=== PATIENT | male | born 1950 | race Caucasian/White ===

== ENCOUNTER → 2017-08-08 20:00 | Outpatient (CLI) | payer MEDICARE, BC, SELFPAY | PROVIDERS: Family Provider Family Medicine; PCP Family Medicine; Visit Provider Internal Medicine Critical Care Medicine | DX: G47.33 Obstructive sleep apnea (adult) (pediatric) (principal) | CPT/HCPCS: 95811 ==

== ENCOUNTER → 2017-09-03 16:25 | Outpatient (CLI) | payer MEDICARE, BC, SELFPAY ==
--- NOTE | 2017-09-03 16:27 | US_ITS ---
STUDY: SCROTUM ULTRASOUND REASON FOR EXAM: Male, 67 years old. Right palpable lump TECHNIQUE: Ultrasound evaluation of the scrotum was performed with color Doppler and static saenz-scale imaging. COMPARISON: None. FINDINGS: RIGHT TESTICLE INTRATESTICULAR: There is a normal size of the right testicle. The right testicle measures 4.9 x 3.6 x 2.2 cm. There is a homogenous echotexture. There is normal arterial and normal venous vascularity. There is no demonstrated right testicular mass or cyst. There is a slightly hyper/isoechoic area with hypoechoic center of the posterior right scrotal wall measuring 4 mm in diameter. This structure is itself avascular, but there is demonstrated surrounding hypervascularity of the scrotal wall tissue. EXTRATESTICULAR: The epididymis is normal in size. The epididymis head measures 0.8 x 1.0 x 0.8 cm. There is normal vascularity of the epididymis. There is no demonstrated epididymal cystic structure. There is a small hydrocele. There is no demonstrated varicocele. There is no demonstrated extratesticular mass or cyst. LEFT TESTICLE INTRATESTICULAR: There is a normal size of the left testicle. The left testicle measures 4.3 x 3.2 x 1.6 cm. There is a homogenous echotexture. There is normal arterial and normal venous vascularity. There is no demonstrated left testicular mass or cyst. EXTRATESTICULAR: The epididymis is normal in size. The epididymis head measures 0.7 x 1.3 x 1.0 cm. There is normal vascularity of the epididymis. There is no demonstrated epididymal cystic structure. There is no demonstrated hydrocele. There is no demonstrated varicocele. There is no demonstrated extratesticular mass or cyst. US/Testicular with Arterial Flow IMPRESSION: 4 mm slightly hyper/isoechoic structure with hypoechoic center of the posterior right scrotal wall corresponding to palpable abnormality. This may represent process such as small sebaceous cyst or abscess. There is a small right hydrocele. The left and right testes and epididymal heads otherwise appear within normal limits. Electronically Signed: Kurtis Peoples MD at 18:22 EDT , Service support ,
== END ==
PROVIDERS: Family Provider Family Medicine; PCP Family Medicine; Visit Provider Family Medicine
DX: N50.82 Scrotal pain (principal); N50.89 Other specified disorders of the male genital organs
CPT/HCPCS: 76870; 93976

== ENCOUNTER → 2017-11-29 10:00 | Outpatient (CLI) | payer MEDICARE, BC, SELFPAY | PROVIDERS: Family Provider Family Medicine; PCP Family Medicine; Visit Provider Nurse Practitioner Family | DX: G47.33 Obstructive sleep apnea (adult) (pediatric) (principal) | CPT/HCPCS: 98960; G0463 ==

== ENCOUNTER → 2018-03-14 07:56 | Outpatient (CLI) | payer MEDICARE, BC, SELFPAY ==
[2018-03-14 10:25] LABS: Absolute Lymphocyte Count 1.37 X10^3/ul (0.83-4.51); Absolute Neutrophil Count 2.1 X10^3/uL (2.0-7.7); Basophil# 0.02 X10^3/uL; Basophil% 0.5 % (0-1); Eosinophil# 0.11 X10^3/uL; Eosinophils% 2.6 % (0-5); Hemoglobin 13.8 g/dl (13.0-16.5); Lymphocyte # 1.37 X10^3/ul (4.0); Lymphocyte % 32.2 % (19-41); Mean Corp Hgb Conc 33.7 g/gl (32-36); Mean Corpuscular Hgb 31.4 pg (27.0-32.0); Mean Corpuscular Volume 93.2 fL (80-94); Mean Platelet Vol. 9.3 fl (6.2-12.0); Monocyte# 0.62 X10^3/uL; Monocyte% 14.6 % (0-10); Neutrophil # 2.12 X10^3/uL (2.7-7.7); Neutrophil % 49.9 % (47-70); Platelet Count 244 K/mm3 (150-450); RBC Distribution Width CV 12.7 % (11.6-14.6); RBC Distribution Width SD 42.8 fl (35.1-43.9); White Blood Count 4.3 K/mm3 (4.4-11.0)
[2018-03-14 10:30] LABS: POSITIVE COUNT NO; POSITIVE DIFFERENTIAL NO; POSITIVE MORPHOLOGY NO
[2018-03-14 10:49] LABS: Anion Gap 7 (5-15); BUN 22 mg/dL (7-18); BUN/Creat Ratio 22.2 RATIO (10-20); Chloride 104 mmol/L (98-107); Cholesterol 170 mg/dL (200); Creatinine, Serum 0.99 mg/dL (0.70-1.30); EST Glomerular Filtration Rate 80 mL/min (>60); Est Glom Filt Rate - Afr Amer 97 mL/min (>60); Glucose 89 mg/dL (74-106); High Density Lipoprotein 41 mg/dL; PSA,Total - Annual Screen 3.46 ng/mL (0.00-4.00); Potassium 4.3 mmol/L (3.5-5.1); Sodium Level 140 mmol/L (136-145); Triglycerides 99 mg/dL; Very Low Density Lipoprotein 20 mg/dL (5-40)
== END ==
PROVIDERS: Family Provider Family Medicine; PCP Family Medicine; Referring Provider Family Medicine; Visit Provider Family Medicine
DX: I10 Essential (primary) hypertension (principal); E78.00 Pure hypercholesterolemia, unspecified; L02.415 Cutaneous abscess of right lower limb; Z12.5 Encounter for screening for malignant neoplasm of prostate
CPT/HCPCS: 36415; 80048; 80061; 84153; 85025; G0103

== ENCOUNTER → 2019-05-16 07:22 | Outpatient (CLI) | payer MEDICARE, BC, SELFPAY ==
[2019-05-14 12:25] VITALS: BMI 29.8
[2019-05-16 10:35] LABS: AST(SGOT) 26 U/L (15-37); Alanine Aminotransfer ALT/SGPT 35 U/L (16-61); Albumin, Serum 3.9 g/dL (3.2-5.0); Alkaline Phosphatase 92 U/L (45-117); Anion Gap 5 (5-15); BUN 25 mg/dL (7-18); Calcium,Total 8.6 mg/dL (8.5-10.1); Chloride 102 mmol/L (98-107); Cholesterol 167 mg/dL (200); Creatinine, Serum 1.19 mg/dL (0.70-1.30); EST Glomerular Filtration Rate 64 mL/min (>60); Est Glom Filt Rate - Afr Amer 78 mL/min (>60); Globulin 3.8 g/dL (2.2-4.2); Glucose 78 mg/dL (74-106); High Density Lipoprotein 58 mg/dL; PSA,Total - Annual Screen 4.37 ng/mL (0.00-4.00); Potassium 4.1 mmol/L (3.5-5.1); Protein, Total 7.7 g/dL (6.4-8.2); Sodium Level 135 mmol/L (136-145); Triglycerides 72 mg/dL; Very Low Density Lipoprotein 14 mg/dL (5-40)
== END ==
PROVIDERS: Family Provider Family Medicine; PCP Family Medicine; Referring Provider Family Medicine; Visit Provider Family Medicine
DX: Z12.5 Encounter for screening for malignant neoplasm of prostate (principal); I10 Essential (primary) hypertension
CPT/HCPCS: 80053; 80061; 84153; G0103

== ENCOUNTER → 2019-11-20 08:25 | Outpatient (CLI) | payer MEDICARE, BC, SELFPAY ==
[2019-08-06 13:13] VITALS: BMI 31.6
[2019-11-20 10:43] LABS: PSA,Total- Diagnostic 4.23 ng/mL (0.0-4.0)
== END ==
PROVIDERS: PCP Family Medicine; Referring Provider Family Medicine; Visit Provider Family Medicine
DX: R97.20 Elevated prostate specific antigen [PSA] (principal)
CPT/HCPCS: 36415; 84153

== ENCOUNTER → 2020-03-04 13:00 | Outpatient (CLI) | payer MEDICARE, BC, SELFPAY ==
[2020-02-04 11:32] VITALS: BMI 33.6
== END ==
PROVIDERS: PCP Family Medicine; Referring Provider Internal Medicine Critical Care Medicine; Visit Provider Internal Medicine Critical Care Medicine
DX: G47.30 Sleep apnea, unspecified (principal)
CPT/HCPCS: 98960; G0463

== ENCOUNTER → 2020-03-29 14:34 | Outpatient (CLI) | payer MEDICARE, BC, SELFPAY ==
[2020-02-04 11:32] VITALS: BMI 33.6
[2020-03-29 18:32] LABS: Anion Gap 8 (5-15); BUN 21 mg/dL (7-18); BUN/Creat Ratio 19.8 RATIO (10-20); Chloride 102 mmol/L (98-107); Creatinine, Serum 1.06 mg/dL (0.70-1.30); EST Glomerular Filtration Rate 73 mL/min (>60); Est Glom Filt Rate - Afr Amer 89 mL/min (>60); Glucose 82 mg/dL (74-106); Potassium 4.1 mmol/L (3.5-5.1); Sodium Level 138 mmol/L (136-145)
[2020-03-29 18:47] LABS: Microalbumin,Random Urine 7.5 mg/L (NO RANGE EST.); Microalbumin:Creatinine Ratio 17.2 mg/g CRE (<30 mg/g CRE)
== END ==
PROVIDERS: PCP Family Medicine; Visit Provider Family Medicine
DX: I10 Essential (primary) hypertension (principal)
CPT/HCPCS: 36415; 80048; 82043; 82570

== ENCOUNTER → 2020-10-26 08:51 | Outpatient (CLI) | payer MEDICARE, BC, SELFPAY ==
[2020-08-05 06:58] VITALS: BMI 35.1
[2020-10-26 10:50] LABS: ALB/GLOB Ratio 1.1 RATIO (0.9-2.4); AST(SGOT) 21 U/L (15-37); Alanine Aminotransfer ALT/SGPT 34 U/L (16-61); Albumin, Serum 3.9 g/dL (3.2-5.0); Alkaline Phosphatase 101 U/L (45-117); Anion Gap 6 (5-15); BUN 21 mg/dL (7-18); BUN/Creat Ratio 20.6 RATIO (10-20); Calcium,Total 8.9 mg/dL (8.5-10.1); Chloride 106 mmol/L (98-107); Cholesterol 189 mg/dL (200); Creatinine, Serum 1.02 mg/dL (0.70-1.30); EST Glomerular Filtration Rate 77 mL/min (>60); Est Glom Filt Rate - Afr Amer 93 mL/min (>60); Globulin 3.5 g/dL (2.2-4.2); Glucose 92 mg/dL (74-106); High Density Lipoprotein 48 mg/dL; Potassium 4.1 mmol/L (3.5-5.1); Protein, Total 7.4 g/dL (6.4-8.2); Sodium Level 137 mmol/L (136-145); Triglycerides 122 mg/dL; Very Low Density Lipoprotein 24 mg/dL (5-40)
== END ==
PROVIDERS: PCP Family Medicine; Referring Provider Family Medicine; Visit Provider Family Medicine
DX: E78.00 Pure hypercholesterolemia, unspecified (principal); R97.20 Elevated prostate specific antigen [PSA]
CPT/HCPCS: 36415; 80053; 80061; 84153

== ENCOUNTER → 2020-10-27 09:58 | Outpatient (CLI) | payer MEDICARE, BC, SELFPAY ==
[2020-08-05 06:58] VITALS: BMI 35.1
--- NOTE | 2020-10-27 10:01 | STEWCON_ITS ---
Reason For Study: DYSPNEA Stress Results Protocol: Tony Protocol WITH DEFINITY Maximum Predicted HR: 150 bpm Target HR: 128 bpm % Maximum Predicted HR: 89 % DurationHeart Rate Stage (mm:ss) (bpm) BP Comment BASELINE 68 148/80 STAGE 1 3:00 111 170/80SLIGHT SOB STAGE 2 3:00 120 172/80SOB BUT ABLE TO TALK STAGE 3 1:00 134 / INCREASED SOB WITH EXP AUDIBLE WHEEZ RECOVERY 80 148/824 CC DEFINITY TOTAL Stress Duration: 7:00 mm:ss Maximum Stress HR: 134 bpm METS: 9 Baseline Echocardiogram Findings Stress Echo Wall motion Data Resting WM Intermediate WM Stress WM Resting Wall Motion Wall Motion Stress All segments Normal. All segments Hyperkinetic. Ejection Fraction 55 %. Ejection Fraction 65 %. Stress Results Heart rate response: Appropriate Blood pressure response: Resting hypertension-appropriate response Arrhythmias: none Functional capacity: Good Stop secondary to: Dyspnea. EKG Data Baseline ECG: NSR. Peak exercise ECG: Somatic/motion artifact with no obvious ECG changes. Symptoms with Stress No complaint of chest discomfort during exercise or recovery. ECHO/Stress Test Echo W/Contrast Interpretation Summary Contrast injection performed Negative (adequate) stress echocardiogram Ordering Physician: Renny Dunaway Referring Physician: Renny Dunaway Performed By: Tory Rangel, AKBAR, RVT
== END ==
PROVIDERS: PCP Family Medicine; Referring Provider Family Medicine; Visit Provider Family Medicine
DX: R06.00 Dyspnea, unspecified (principal)
CPT/HCPCS: 93017; 93350; Q9957; A4216; C8928; J3490

== ENCOUNTER → 2021-12-09 | Outpatient (CLI) | payer MEDICARE, BC, SELFPAY ==
[2021-12-09 15:26] LABS: AST(SGOT) 27 U/L (15-37); Alanine Aminotransfer ALT/SGPT 37 U/L (16-61); Anion Gap 7 (5-15); BUN 17 mg/dL (7-18); BUN/Creat Ratio 17.7 RATIO (10-20); Calcium,Total 8.9 mg/dL (8.5-10.1); Chloride 104 mmol/L (98-107); Cholesterol 193 mg/dL (200); Creatinine, Serum 0.96 mg/dL (0.70-1.30); EST Glomerular Filtration Rate 82 mL/min (>60); Est Glom Filt Rate - Afr Amer 99 mL/min (>60); Glucose 86 mg/dL (74-106); High Density Lipoprotein 45 mg/dL; PSA,Total - Annual Screen 5.92 ng/mL (0.00-4.00); Potassium 4.4 mmol/L (3.5-5.1); Sodium Level 138 mmol/L (136-145); Triglycerides 197 mg/dL; Very Low Density Lipoprotein 39 mg/dL (5-40)
== END | disposition home or self-care (01) ==
LOC: MFPLAB 11:54
PROVIDERS: PCP Family Medicine; Visit Provider Family Medicine
DX: I10 Essential (primary) hypertension (principal); E78.00 Pure hypercholesterolemia, unspecified; R97.20 Elevated prostate specific antigen [PSA]; Z12.5 Encounter for screening for malignant neoplasm of prostate
CPT/HCPCS: 36415; 80048; 80061; 82043; 82570; 84153; 84450; 84460; G0103

== ENCOUNTER → 2022-02-09 | Outpatient (CLI) | payer MEDICARE, BC, SELFPAY ==
--- NOTE | 2022-02-09 07:18 | CT_ITS ---
STUDY: CT RIGHT LOWER EXTREMITY WITHOUT CONTRAST REASON FOR EXAM: Right knee osteoarthritis, surgical planning. TECHNIQUE: Transaxial CT imaging of the lower extremity was performed. Coronal and sagittal images were reformatted. Individualized dose optimization techniques were used for this CT. COMPARISON: Radiographs 08/06/2012. FINDINGS: Knee: There is arthrosis of the medial femorotibial compartment with marginal osteophytes, subchondral cystic change/eburnation and joint space loss (coronal reconstruction 51). There is incidental vacuum phenomenon in the medial femorotibial compartment. There are small marginal osteophytes of the lateral femoral condyle with preservation of joint space of the lateral femorotibial compartment. There are small marginal osteophytes of the patellofemoral compartment with preservation of joint space. There is a small joint effusion. There is a small popliteal cyst (axial image 310). There is mild vascular calcification. Hip: There is narrowing of the joint space (coronal reconstruction 56). Ankle: Unremarkable right ankle. CT/Extremity Lower without Contra IMPRESSION: Right knee osteoarthritis. Electronically Signed: Angelo Hravey MD at 15:01 EDT ,
--- NOTE | 2022-02-09 07:20 | EKG12_ITS ---
Test Reason : PREOP Blood Pressure : / mmHG Vent. Rate : 060 BPM Atrial Rate : 060 BPM P-R Int : 200 ms QRS Dur : 098 ms QT Int : 450 ms P-R-T Axes : 026 025 055 degrees QTc Int : 450 ms Normal sinus rhythm Normal ECG Confirmed by NELLY MIRANDA, SOILA ([id number]), health editor PATRICE ROB ([id number]) on 02/10/2022 11:53:40 AM Referred By: Donavon De Confirmed By:SHADY VILLEGAS MD
--- NOTE | 2022-02-09 07:21 | RAD_ITS ---
HISTORY: PREOP. TECHNIQUE: XR Chest 2 Views. COMPARISON: 02/18/2017. FINDINGS: CARDIOMEDIASTINAL BORDERS: Cardiac silhouette within normal limits in size. Mediastinal contour unremarkable. LUNGS: Hyperinflated lungs with mild linear bibasilar opacities. PLEURA: No pleural effusion or pneumothorax seen. OSSEOUS STRUCTURES: Mild scoliosis and degenerative change. RAD/Chest PA and Lateral IMPRESSION: Mild atelectasis or scarring in the lung bases. Electronically Signed: Brittanie Sanchez MD at 8:31 EDT ,
[2022-02-09 08:14] LABS: Absolute Lymphocyte Count 1.56 X10^3/uL (0.83-4.51); Absolute Neutrophil Count 2.1 X10^3/uL (2.0-7.7); Basophil# 0.04 X10^3/uL; Basophil% 0.9 % (0-1); Eosinophil# 0.33 X10^3/uL; Eosinophils% 7.1 % (0-5); Hematocrit 41.1 % (40-54); Hemoglobin 13.6 g/dL (13.0-16.5); Lymphocyte # 1.56 X10^3/ul (0.83-4.51); Lymphocyte % 33.5 % (19-41); Mean Corp Hgb Conc 33.1 g/dL (32-36); Mean Corpuscular Volume 90.5 fL (80-94); Mean Platelet Vol. 8.9 fl (6.2-12.0); Monocyte# 0.67 X10^3/uL; Monocyte% 14.4 % (0-10); NRBC Flagged by Analyzer 0 % (0-5); Neutrophil # 2.05 X10^3/uL (2.7-7.7); Neutrophil % 43.9 % (47-70); Platelet Count 256 K/mm3 (150-450); RBC Distribution Width CV 13.1 % (11.6-14.6); Red Blood Count 4.54 M/mm3 (4.6-6.2); White Blood Count 4.7 K/mm3 (4.4-11.0)
[2022-02-09 08:39] LABS: Anion Gap 8 (5-15); BUN 19 mg/dL (7-18); BUN/Creat Ratio 18.8 RATIO (10-20); Calcium,Total 8.7 mg/dL (8.5-10.1); Chloride 104 mmol/L (98-107); Creatinine, Serum 1.01 mg/dL (0.70-1.30); EST Glomerular Filtration Rate 77 mL/min (>60); Est Glom Filt Rate - Afr Amer 93 mL/min (>60); Glucose 95 mg/dL (74-106); Potassium 3.8 mmol/L (3.5-5.1); Sodium Level 139 mmol/L (136-145)
== END | disposition home or self-care (01) ==
LOC: CT 07:08
PROVIDERS: Physician Assistant Surgical; PCP Family Medicine; Referring Provider Orthopaedic Surgery; Visit Provider Orthopaedic Surgery
DX: Z01.818 Encounter for other preprocedural examination (principal)
CPT/HCPCS: 36415; 71046; 73700; 80048; 85025; 93005

== ENCOUNTER → 2022-03-01 | Outpatient (CLI) | payer MEDICARE, BC, SELFPAY ==
--- NOTE | 2022-03-01 11:00 | KNEE_PTH ---
PATIENT: DOLLY NAVARRO LOC: [facility] U#:[id number] AGE/SX: 72/M ROOM: RE03/01/[address]: Dr. Donavon De DO : 1950 BED: DIS: 03/01/2022 SPEC #: [id number] RECD: 03/01/22 15:06 STATUS: INES TUAN #: [id number] CATRINA: 03/01/22 11:[address]: Donavon De DEPT: SURGICAL PATHOLOGY RECD BY: Mayra Ascencio ENTERED: 03/02/22 08:18 SP TYPE: TOTAL KNEE OTHR DR: Dr. Justin Stubbs MD [facility] Tissues: Knee, NOS Procedures: Decalcification bone/plaque Surgery Specimen Level IV HEADER OPERATION: Robotic assisted right total knee arthroplasty PRE-OP DIAGNOSIS: Grade IV osteoarthritis right knee TISSUE SUBMITTED: Right knee bone and tissue MICROSCOPIC DIAGNOSIS Bone and tissue of right knee, total knee resection: Severe degenerative joint disease. Mild synovial hyperplasia. AM:arie 03/08/2022 MICROSCOPIC DESCRIPTION Slides are reviewed. GROSS DESCRIPTION Received is one container designated bone and soft tissue left knee. The specimen consists of multiple fragments of payne-yellow bone measuring in aggregate 16 x 15 x 2 cm. Also in the specimen container are multiple fragments of yellow-white soft tissue measuring in aggregate 11 x 10 x 2 cm. A number of bony fragments contain articular surfaces consistent with tibial plateau and femoral condyle and displaying prominent osteophyte formation, eburnation, and bone erosion. Waistline Joiner Lockstitch sections are submitted in two cassettes as follows: 1 - soft tissue, 2 - bone after decalcification. / AM:arie 03/02/2022 TC:5 CPT: 38361, 93257
== END | disposition home or self-care (01) ==
LOC: LABSPEC 15:15
PROVIDERS: PCP Family Medicine; Visit Provider Orthopaedic Surgery
DX: M17.11 Unilateral primary osteoarthritis, right knee (principal)
CPT/HCPCS: 88305; 88311

== ENCOUNTER → 2022-07-14 | Outpatient (CLI) | payer MEDICARE, BC, SELFPAY ==
[2022-07-14 10:15] LABS: Absolute Neutrophil Count 1.9 X10^3/uL (2.0-7.7); Basophil# 0.04 X10^3/uL; Basophil% 0.9 % (0-1); Eosinophils% 6.9 % (0-5); Hematocrit 40.2 % (40-54); Hemoglobin 13.5 g/dL (13.0-16.5); Lymphocyte % 34.7 % (19-41); Mean Corp Hgb Conc 33.6 g/dL (32-36); Mean Corpuscular Hgb 30.6 pg (27.0-32.0); Mean Corpuscular Volume 91.2 fL (80-94); Mean Platelet Vol. 8.5 fl (6.2-12.0); Monocyte# 0.61 X10^3/uL; Monocyte% 14.1 % (0-10); NRBC Flagged by Analyzer 0 % (0-5); Neutrophil # 1.86 X10^3/uL (2.7-7.7); Neutrophil % 43.2 % (47-70); Platelet Count 234 K/mm3 (150-450); RBC Distribution Width CV 13.1 % (11.6-14.6); RBC Distribution Width SD 43.7 fl (35.1-43.9); Red Blood Count 4.41 M/mm3 (4.6-6.2); White Blood Count 4.3 K/mm3 (4.4-11.0)
[2022-07-14 10:36] LABS: Microalbumin,Random Urine 26.1 mg/L (NO RANGE EST.); Microalbumin:Creatinine Ratio 15.1 mg/g CRE (<30 mg/g CRE)
[2022-07-14 10:57] LABS: AST(SGOT) 18 U/L (15-37); Alanine Aminotransfer ALT/SGPT 30 U/L (16-61); Albumin, Serum 3.6 g/dL (3.2-5.0); Alkaline Phosphatase 93 U/L (45-117); Anion Gap 4 (5-15); BUN 22 mg/dL (7-18); BUN/Creat Ratio 20.4 RATIO (10-20); Calcium,Total 8.7 mg/dL (8.5-10.1); Chloride 106 mmol/L (98-107); Creatinine, Serum 1.08 mg/dL (0.70-1.30); EST Glomerular Filtration Rate 71 mL/min (>60); Est Glom Filt Rate - Afr Amer 86 mL/min (>60); Globulin 3.5 g/dL (2.2-4.2); Glucose 97 mg/dL (74-106); PSA,Total- Diagnostic 5.27 ng/mL (0.0-4.0); Potassium 4.1 mmol/L (3.5-5.1); Protein, Total 7.1 g/dL (6.4-8.2); Sodium Level 139 mmol/L (136-145)
== END | disposition home or self-care (01) ==
PROVIDERS: PCP Family Medicine; Referring Provider Family Medicine; Visit Provider Family Medicine
DX: R97.20 Elevated prostate specific antigen [PSA] (principal); J44.9 Chronic obstructive pulmonary disease, unspecified; I10 Essential (primary) hypertension
CPT/HCPCS: 36415; 80053; 82043; 82570; 84153; 85025

== ENCOUNTER → 2022-09-14 | Outpatient (CLI) | payer MEDICARE, BC, SELFPAY ==
[2022-09-14 10:26] LABS: Erythrocyte Sedimentation Rate 5 mm/hr (0-20)
[2022-09-14 10:28] LABS: Absolute Lymphocyte Count 1.31 X10^3/uL (0.83-4.51); Absolute Neutrophil Count 1.9 X10^3/uL (2.0-7.7); Basophil# 0.03 X10^3/uL; Basophil% 0.7 % (0-1); Eosinophil# 0.31 X10^3/uL; Eosinophils% 7.5 % (0-5); Hemoglobin 13.6 g/dL (13.0-16.5); Lymphocyte # 1.31 X10^3/ul (0.83-4.51); Lymphocyte % 31.9 % (19-41); Mean Corp Hgb Conc 32.4 g/dL (32-36); Mean Corpuscular Hgb 30.3 pg (27.0-32.0); Mean Corpuscular Volume 93.5 fL (80-94); Mean Platelet Vol. 9.4 fl (6.2-12.0); Monocyte# 0.55 X10^3/uL; Monocyte% 13.4 % (0-10); NRBC Flagged by Analyzer 0 % (0-5); Neutrophil % 46.3 % (47-70); Platelet Count 255 K/mm3 (150-450); RBC Distribution Width CV 13.5 % (11.6-14.6); RBC Distribution Width SD 46.4 fl (35.1-43.9); Red Blood Count 4.49 M/mm3 (4.6-6.2); White Blood Count 4.1 K/mm3 (4.4-11.0)
[2022-09-14 10:58] LABS: CRP < 2.90 mg/L (0.0-3.0)
== END | disposition home or self-care (01) ==
LOC: MFPLAB 08:49
PROVIDERS: PCP Family Medicine; Visit Provider Orthopaedic Surgery
DX: M16.12 Unilateral primary osteoarthritis, left hip (principal)
CPT/HCPCS: 36415; 85025; 85652; 86140

== ENCOUNTER → 2023-04-12 | Outpatient (CLI) | payer MEDICARE, BC, SELFPAY ==
[2023-04-12 10:22] LABS: Erythrocyte Sedimentation Rate 6 mm/hr (0-20)
[2023-04-12 10:25] LABS: Absolute Lymphocyte Count 1.35 X10^3/uL (0.83-4.51); Basophil# 0.05 X10^3/uL; Basophil% 0.7 % (0-1); Eosinophil# 0.41 X10^3/uL; Eosinophils% 6.1 % (0-5); Lymphocyte # 1.35 X10^3/ul (0.83-4.51); Mean Corp Hgb Conc 33.3 g/dL (32-36); Mean Corpuscular Hgb 32.1 pg (27.0-32.0); Mean Corpuscular Volume 96.3 fL (80-94); Mean Platelet Vol. 8.7 fl (6.2-12.0); Monocyte% 13.3 % (0-10); NRBC Flagged by Analyzer 0 % (0-5); Neutrophil # 4.02 X10^3/uL (2.7-7.7); Neutrophil % 59.6 % (47-70); Platelet Count 261 K/mm3 (150-450); RBC Distribution Width CV 12.4 % (11.6-14.6); RBC Distribution Width SD 44.3 fl (35.1-43.9); Red Blood Count 4.36 M/mm3 (4.6-6.2); White Blood Count 6.8 K/mm3 (4.4-11.0)
[2023-04-12 10:32] LABS: PTHIN 57.4 pg/mL (18.4-80.1)
[2023-04-12 10:35] LABS: Vitamin D,25 Hydroxy 47.2 ng/mL
[2023-04-12 10:46] LABS: ALB/GLOB Ratio 0.9 RATIO (0.9-2.4); AST(SGOT) 20 U/L (15-37); Alanine Aminotransfer ALT/SGPT 27 U/L (16-61); Albumin, Serum 3.5 g/dL (3.2-5.0); Alkaline Phosphatase 117 U/L (45-117); Anion Gap 6 (5-15); BUN 27 mg/dL (7-18); BUN/Creat Ratio 24.8 RATIO (10-20); CPK Total, Creatine Kinase 112 U/L (39-308); CRP 4.05 mg/L (0.0-3.0); Calcium,Total 8.8 mg/dL (8.5-10.1); Chloride 106 mmol/L (98-107); Creatinine, Serum 1.09 mg/dL (0.70-1.30); EST Glomerular Filtration Rate 71 mL/min (>60); Est Glom Filt Rate - Afr Amer 85 mL/min (>60); Globulin 3.9 g/dL (2.2-4.2); Glucose 96 mg/dL (74-106); Potassium 4.5 mmol/L (3.5-5.1); Protein, Total 7.4 g/dL (6.4-8.2); Rheumatoid Factor < 10.0 IU/mL (<15); Sodium Level 137 mmol/L (136-145); Thyroid Stim Hormone (TSH) 1.18 uIU/mL (0.358-3.74)
[2023-04-13 12:09] LABS: ANTINUCLEAR ANTIBODIES DIRECT Negative (Negative)
[2023-04-13 15:08] LABS: Lyme Scn Total Ab w/Rflx Negative (Negative); PROEL- A/G Ratio 1.1 (0.7-1.7); PROEL- Albumin 3.5 g/dL (2.9-4.4); PROEL- Alpha-1 Globulin 0.2 g/dL (0.0-0.4); PROEL- Alpha-2 Globulin 0.9 g/dL (0.4-1.0); PROEL- Gamma Globulin 1.1 g/dL (0.4-1.8); PROEL- Globulin, Total 3.1 g/dL (2.2-3.9); PROEL- TOTAL PROTEIN 6.6 g/dL (6.0-8.5); PROEL-M-Spike Not Observed g/dL (Not Observed)
== END | disposition home or self-care (01) ==
LOC: MTLAB 09:21
PROVIDERS: PCP Family Medicine; Referring Provider Family Medicine; Visit Provider Family Medicine
DX: M25.50 Pain in unspecified joint (principal); E55.9 Vitamin D deficiency, unspecified; R25.2 Cramp and spasm
CPT/HCPCS: 36415; 80053; 82306; 82550; 83970; 84165; 84443; 85025; 85652; 86038; 86140; 86225; 86235; 86431; 86618

== ENCOUNTER → 2023-05-04 | Outpatient (CLI) | payer MEDICARE, BC, SELFPAY ==
--- NOTE | 2023-05-04 13:07 | RAD_ITS ---
STUDY: X-RAY - CERVICAL SPINE REASON FOR EXAM: Male, 73 years old. Neck pain, weakness TECHNIQUE: 6 view(s) of the cervical spine were obtained. COMPARISON: None FINDINGS: Normal anterior atlantoaxial articulation. Normal odontoid process. There is straightening of the normal cervical lordosis. There is multi-level endplate spondylosis. There is multi-level degenerative disc disease with multilevel disc space narrowing. There is multi-level osseous foraminal stenosis. The soft tissue structures are unremarkable. There is no demonstrated fracture of the cervical spine. RAD/Cerv Spine 4 or 5 Views IMPRESSION: Multilevel degenerative changes, no acute findings Electronically Signed: Antoine Lund MD at 11:41 EST ,
--- NOTE | 2023-05-04 13:10 | RAD_ITS ---
EXAM: XR RIGHT SHOULDER COMPLETE, 2 OR MORE VIEWS CLINICAL INDICATION: R and gt; L shoulder pain and weakness TECHNIQUE: Two or more views of the right shoulder. COMPARISON: No relevant prior studies available. FINDINGS: BONES/JOINTS: No acute abnormality. SOFT TISSUES: Normal. No soft tissue swelling or gas. No radiopaque foreign body. LUNGS AND PLEURAL SPACES: Normal. No consolidation or edema. No pneumothorax. No effusion. RAD/Shoulder min 2 Views IMPRESSION: Intact right shoulder. Electronically Signed: Kristian Burton MD at 10:49 EST ,
[2023-05-04 15:31] LABS: Absolute Lymphocyte Count 1.71 X10^3/uL (0.83-4.51); Basophil# 0.03 X10^3/uL; Basophil% 0.4 % (0-1); Eosinophil# 0.21 X10^3/uL; Hematocrit 41.1 % (40-54); Hemoglobin 13.3 g/dL (13.0-16.5); Lymphocyte # 1.71 X10^3/ul (0.83-4.51); Lymphocyte % 24.7 % (19-41); Mean Corp Hgb Conc 32.4 g/dL (32-36); Mean Corpuscular Hgb 31.1 pg (27.0-32.0); Mean Corpuscular Volume 96.3 fL (80-94); Mean Platelet Vol. 8.8 fl (6.2-12.0); Monocyte# 0.92 X10^3/uL; Monocyte% 13.3 % (0-10); NRBC Flagged by Analyzer 0 % (0-5); Neutrophil # 4.04 X10^3/uL (2.7-7.7); Neutrophil % 58.3 % (47-70); Platelet Count 315 K/mm3 (150-450); RBC Distribution Width CV 12.6 % (11.6-14.6); RBC Distribution Width SD 44.4 fl (35.1-43.9); Red Blood Count 4.27 M/mm3 (4.6-6.2); White Blood Count 6.9 K/mm3 (4.4-11.0)
[2023-05-04 15:57] LABS: Erythrocyte Sedimentation Rate 7 mm/hr (0-20)
[2023-05-04 16:04] LABS: ALB/GLOB Ratio 0.9 RATIO (0.9-2.4); AST(SGOT) 20 U/L (15-37); Alanine Aminotransfer ALT/SGPT 37 U/L (16-61); Albumin, Serum 3.6 g/dL (3.2-5.0); Alkaline Phosphatase 110 U/L (45-117); Anion Gap 5 (5-15); BUN 23 mg/dL (7-18); BUN/Creat Ratio 26.8 RATIO (10-20); Calcium,Total 8.7 mg/dL (8.5-10.1); Chloride 103 mmol/L (98-107); Creatinine, Serum 0.86 mg/dL (0.70-1.30); EST Glomerular Filtration Rate 93 mL/min (>60); Est Glom Filt Rate - Afr Amer 112 mL/min (>60); Globulin 4.2 g/dL (2.2-4.2); Glucose 101 mg/dL (74-106); Potassium 4.6 mmol/L (3.5-5.1); Protein, Total 7.8 g/dL (6.4-8.2); Sodium Level 136 mmol/L (136-145)
[2023-05-04 16:40] LABS: Syphilis Antibodies Non-reactive
== END | disposition home or self-care (01) ==
LOC: MTLAB 13:07
PROVIDERS: PCP Family Medicine; Referring Provider Family Medicine; Visit Provider Family Medicine
DX: M25.511 Pain in right shoulder (principal); R29.898 Other symptoms and signs involving the musculoskeletal system
CPT/HCPCS: 36415; 72050; 73030; 80053; 85025; 85652; 86140; 86780

== ENCOUNTER → 2023-05-18 | Outpatient (CLI) | payer MEDICARE, BC, SELFPAY ==
--- NOTE | 2023-05-18 10:59 | MRI_ITS ---
STUDY: MRI CERVICAL SPINE WITH AND WITHOUT CONTRAST REASON FOR EXAM: Male, 73 years old. R and gt; and gt; L arm weakness and pain; spondylosis on x-ray; elevated CRP, ? discitis,? bone infection TECHNIQUE: Standardized fat and water weighted pulse sequences were obtained in the sagittal and axial following administration of 20ml IV Clariscan. COMPARISON: X-ray May 04, 2023 FINDINGS: Normal foramen magnum and brainstem-cervical cord junction. Normal craniovertebral junction. Normal anterior atlantoaxial articulation. Normal odontoid process. There is reversal of the normal cervical lordosis. There is grade 1 retrolisthesis at C3-4 C4-5, C5-6, and C6-7. Normal vertebral bodies and posterior osseous elements. C2-3: Normal endplates. Normal disc height, signal and morphology. Facet spurring on the left. Normal central canal and intervertebral neural foramina. C3-4: Disc space narrowing. Disc bulge and spurring to the left. Facet spurring on the left. Mild canal stenosis. Left foraminal narrowing. C4-5: Disc space narrowing. Disc bulge and spurring. Facet spurring. Moderate canal stenosis. Bilateral foraminal narrowing. C5-6: Disc space narrowing. Disc bulge and spurring. Mild facet spurring. Mild canal stenosis. Bilateral foraminal narrowing. C6-7: Disc space narrowing. Disc bulge and spurring. Mild facet spurring. Mild canal stenosis. Bilateral foraminal narrowing. C7-T1: Disc space narrowing. Disc bulge with mild spurring. No canal stenosis. Mild right foraminal narrowing. Normal cervical cord. Normal visualized soft tissue structures. MRI/Spine Cervical W/WO Contrast IMPRESSION: Multilevel degenerative changes, as described above. Electronically Signed: Demetri Gilbert MD at 15:48 EST ,
== END | disposition home or self-care (01) ==
LOC: MRI 10:56
PROVIDERS: PCP Family Medicine; Referring Provider Family Medicine; Visit Provider Family Medicine
DX: R29.898 Other symptoms and signs involving the musculoskeletal system (principal)
CPT/HCPCS: 72156

== ENCOUNTER 2023-08-23 07:53 | Day surgery (SDC) | payer OTHER, SELFPAY ==
--- NOTE | 2023-08-15 06:53 | EKG12_ITS ---
Test Reason : PREOP Blood Pressure : / mmHG Vent. Rate : 067 BPM Atrial Rate : 067 BPM P-R Int : 186 ms QRS Dur : 098 ms QT Int : 406 ms P-R-T Axes : -20 024 065 degrees QTc Int : 429 ms Normal sinus rhythm Normal ECG Confirmed by RADHA MIRANDA, KARINA ([id number]), editor map ANEUDY MARIA ([id number]) on 08/15/2023 1:41:42 PM Referred By: Mundo Atkinson Confirmed By:KARINA GARCIA MD
[2023-08-23 08:25] VITALS: BP 153/90; PULSE 95; RESP 17; TEMP 36.6; O2SAT 99; BMI 32.2
[2023-08-23] MEDS: Lactated Ringers 1,000 ML 15 ML IV (08:30)
--- NOTE | 2023-08-23 08:34 | HP.PCM_ITS ---
History and Physical Date of Admission: 08/23/23 Intake Vital Signs 07/25/2414:06 08/02/2413:18 Height 6 ft 2 in 6 ft 2 in Weight: 245 lb 245 lb BMI 31.4 31.4 BP 138/94 H 130/93 H Blood Pressure Location Rt brachial Rt brachial Position Sitting Sitting Respiration 16 18 Pulse 110 H Pulse Source Monitor Temp 97.7 F L Temp Source Temporal Pulse Oximetry (%) 99 Oxygen Delivery Method room air Intake Visit Reasons: Hernia Chief Complaint: right groin pain Felt Hat Pouncing Operator Hand Required: No Is patient in pain?: Yes (right groin) Allergies Penicillins [PCN] Allergy (Verified 08/03/23 14:19) OtherSulfa (Sulfonamide Antibiotics) Allergy (Verified 08/03/23 14:19) Other Medications cholecalciferol (vitamin D3) 125 mcg (5,000 unit) capsule 5,000 unit PO DAILY 01/10/17 [History Confirmed 08/03/23] multivitamin 1 ea PO DAILY 01/10/17 [History Confirmed 08/03/23] ipratropium 0.5 mg-albuterol 3 mg (2.5 mg base)/3 mL nebulization soln 3 ml inhalation Q4H PRN PRN SOB &/OR WHEEZING #180 mL 08/24/17 [Rx Confirmed 08/03/23] citalopram 20 mg tablet 20 mg PO DAILY 09/07/17 [History Confirmed 08/03/23] fexofenadine 180 mg tablet 180 mg PO Q24H #30 tabs 12/30/18 [Rx Confirmed 08/03/23] meloxicam 15 mg tablet 15 mg PO DAILY 05/15/19 [History Confirmed 08/03/23] albuterol sulfate 90 mcg/actuation aerosol inhaler 1 puff inhalation Q4H PRN PRN shortness of breath or wheezing #1 device 08/05/20 [Rx Confirmed 08/03/23] fluticasone furoate 200 mcg-vilanterol 25 mcg/dose inhalation powder (Breo Ellipta) 1 inh inhalation QDAY #3 device 08/02/22 [Rx Confirmed 08/03/23] candesartan 8 mg tablet 8 mg PO DAILY 08/17/22 [History Confirmed 08/03/23] montelukast 10 mg tablet 10 mg PO DAILY #90 tabs 09/05/22 [Rx Confirmed 08/03/23] PFSH Medical History Allergic rhinitis Asthma Asthma-COPD overlap syndrome Cellulitis, finger History of emotional problems Hypertension 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, upper limb Kidney stones Late effect of open wound of extremities Right inguinal hernia Seasonal allergic rhinitis Sleep disorder breathing Synovitis and tenosynovitis Vision problems Surgical History (Updated 08/03/23 @ 14:17 by Judy Quijano) Ganglion cyst H/O hand surgery History of hip replacement History of lithotripsy S/P right knee surgery S/P total left hip arthroplasty Family History (Updated 08/03/23 @ 14:18 by Judy Quijano) Mother HypertensionFather Hypertension Heart disease CVA (cerebral vascular accident)Brother Parkinson's disease Heart diseaseGrandfather Parkinson's disease Social History Smoking Status: Never smoker second hand exposure: No alcohol intake: never substance use type: does not use caffeine: Yes (5 drinks/day) what type of physical activity do you participate in: none HPI HPI HPI: Patient is a 73-year-old male here with right inguinal hernia. He says this happened at work 1 month ago. He is experiencing bulging and pain in the right side. ROS General General: No weight change, appetite, fatigue, colon cancer, breast cancer or weakness HEENT HEENT: No difficulty swallowing, eye injury, eye surgery, swollen glands or hoarseness Endo Endocrine: No thyroid disease, diabetes mellitus, thyroid cancer, Hair loss, heat intolerance or cold intolerance Skin Skin: No rash or changing moles Breast Breast: No left breast lump, right breast lump, nipple discharge, breast pain, abnormal mammogram, abnormal US or breast enlargement Musc Musculoskeletal: Yes arthritis; No back problems, rheumatoid arthritis, gout or joint pain Cardio Cardiovascular: Yes high blood pressure; No murmur, pacemaker, heart disease, atrial fibrillation, heart attack, heart stent, palpitations, shortness of breat with exertion or chest pain Psych Psychiatric: No depression, anxiety or hearing voices Resp Respiratory: Yes shortness of breath, Yes sleep apnea, No cough, Yes COPD, Yes asthma, No emphysema and No wheezing Gastro Gastrointestinal: No abdominal pain, No nausea or vomiting, No diarrhea, No constipation, No blood in stool, No acid reflux, Yes hemorrhoids, No ulcers, No gallbladder problem and No black,tarry stools Kaushik Hematologic: No blood thinners, No blood disorders, No bleeding, No anemia and No blood clots Neuro Neurologic: No system reviewed and no additional complaints, except as documented, No as per HPI, No abnormal gait, No abnormal hearing, No abnormal movements, No abnormal speech, No behavioral changes, No burning sensations, No confusion, No convulsions, No disequilibrium, No dizziness, No localized weakness, No frequent falls, No headache(s), No lack of coordination, No loss of vision, No memory loss, No numbness, No other visual disturbances, No radicular pain, No restless legs, No sensory deficit, No syncope, No tingling, No tremor(s), No weakness and No other Exam Const General: cooperative Orientation: alert and oriented x3 HENMT Head: normal to inspection Neck Neck: normal visual inspection and full ROM Chest Chest palpation & inspection: normal inspection of the chest Resp Effort & Inspection: normal respiratory effort Auscultation: clear to auscultation bilaterally Cardio Rate: regular rate Rhythm: regular rhythm GI Inspection: non-distended Palpation: soft, hernia indirect inguinal on the right and nontender Skin General: no rashes or lesions noted Neuro General: patient alert and patient oriented x3 Extrem General: full ROM Psych Appearance: grossly normal Mental Status: mental status grossly normal Assessment and Plan Assessment and Plan (1) Right inguinal hernia: Status: Acute Plan: The patient has a right inguinal hernia which occurred at work. I was able to reduce it. I discussed robotic assisted laparoscopic right inguinal hernia repair with mesh in detail with the patient. I discussed the risks including but not limited to bleeding, infection, injury other organs such as the bowel or bladder or blood supply to the testicle or leg. I also discussed nerve injury and mesh placement and the risk of chronic groin pain. Patient or stands all the risks and is willing to proceed. Mundo Atkinson MD Pager: [facility] [address] [place] [address], [address] [place] [address] Office: I have examined the patient and the H&P has been reviewed. There are no clinical changes since date of exam.
[2023-08-23] MEDS: Clindamycin 900 MG/50 ML BAG 75 MG IV (09:13)
[2023-08-23] MEDS: Bupivacaine Mpf 0.5% 30 ML VIAL (10:00)
--- NOTE | 2023-08-23 10:04 | PCM.OPRPT ---
Report of Operation Date of Procedure: 08/23/23 Pre-Operative Diagnosis: Right inguinal hernia Post-Operative Diagnosis: Same Surgery/Procedure Performed:: Robotic assisted laparoscopic right inguinal hernia repair with mesh Description of Surgical Findings:: Indirect right inguinal hernia Type of Anesthesia: General/Regional Specimen's removed: none Estimated Blood Loss (mL): 5 Description of Procedure: Patient was brought back to the operating room and general anesthesia was induced. The abdomen was prepped and draped in usual sterile fashion. A midline incision was made superior to the umbilicus and the fascia was grasped and elevated. A Veress needle was placed into the abdomen. Drop test was performed and then the abdomen was insufflated to 15 mmHg. The Veress needle was removed and the port was placed into the abdomen. Camera was placed into the abdomen as it was inspected for injuries and there were none. Next the patient was placed in steep Trendelenburg position and the inguinal regions were inspected. The patient's left inguinal region was normal but he did have an indirect hernia on the right. Next under direct visualization an 8 mm port was placed in the right lateral abdomen and left lateral abdomen and then the robot was docked. Using electrocautery hook an incision was made in the peritoneum in the right lower quadrant. Dissection was carried inferiorly using electrocautery dissection until the hernia sac was identified. The hernia sac was dissected free from its attachments circumferentially and reduced into the abdomen. Dissection was carried posteriorly until there was a good amount of free space posterior to the hernia. Next a large piece of ProGrip mesh was unfolded and placed over the hernia defect completely covering the defect with good coverage. Next the peritoneum was reapproximated using a running 3 OV lock suture completely covering the mesh. The robot was then undocked and the abdomen was allowed to desufflate. The ports were removed. The incisions were injected with local anesthetic and closed with interrupted 4-0 Monocryl sutures. Steri-Strips and bandages were applied. Scrotum was checked at the end the case and contain both testicles. Patient was brought to PACU in stable condition. Grafts/Implants Used: ProGrip mesh in the right groin Admit VTE Documentation VTE Mechan Device Prophylaxis: SCD's
--- NOTE | 2023-08-23 10:07 | DCINST_ITS ---
Discharge Instructions Procedure Hernia Diet Discharge Diet: Light diet - advance as tolerated Activity Discharge Activity: May Not Drive (for 2-3 days or while taking narcotic pain meds.) and May Shower (with the bandage in place 1-2 days after surgery.) Lifting Restrictions: 20 pounds for 4 weeks. Additional Activity Instructions:: Climbing stairs is fine, walking is encouraged. Sitting in bed may be uncomfortable. Sitting up using your lateral muscles (sitting up sideways) is usually more comfortable. Do not drive, work heavy equipment of sign legal documents for 24 hours. If your hernia repair was an inguinal repair, you may have scrotal swelling, an ice pack and/or athletic support can provide more comfort. Pain medications may cause nausea, you should typically eat light foods as you take your pain medications. Pain medications may also cause constipation. If you have difficulty with this, discuss with your doctor. Alternate ibuprofen and Tylenol, 650 mg of Tylenol every 6 hours and 600 mg of ibuprofen every 6 hours. oxycodone for breakthrough pain. Dressing / Incision Call your doctor if your incision/area has: Continuous Slow Oozing, Sudden Increased Bleeding, Increased Pain/ Swelling, Increased Redness and Foul Smelling Discharge Call your doctor if you observe: Fever of 101 or Higher Suture Line Care: Avoid Pulling/Pushing and Avoid Pinching/Bending Remove Dressing in: 2 days (Remove clear bandages in 2 days, remove Steri-Strips in 7 to 10 days.) Follow Up Care Please Follow Up With: Mundo Atkinson MD When: Please call to schedule 2 week follow up appointment. [phone] Test Results: Test results from this visit will be discussed in further detail at your follow- up appointment, if applicable. Discharge Plan Admission Attending Provider: Mundo Atkinson Primary Care Provider: Justin Stubbs Discharge Orders/Prescriptions Prescriptions: No Action albuterol sulfate 90 mcg/actuation HFA aerosol inhaler 1 puff INHALATION Q4H PRN PRN (Reason: shortness of breath or wheezing) Qty: 1 6RF candesartan 8 mg tablet 8 mg PO DAILY cholecalciferol (vitamin D3) 5,000 UNIT capsule 5,000 unit PO DAILY citalopram 20 mg tablet 40 mg PO DAILY zinc 50 mg capsule 50 mg PO DAILY magnesium 250 mg tablet 250 mg PO DAILY [id number] 375-150-125 mg tablet 1 tab PO DAILY potassium 99 mg tablet 99 mg PO DAILY cyanocobalamin (vitamin B-12) [Vitamin B-12] 1,000 mcg tablet 1,000 mcg PO DAILY Breo Ellipta 200-25 mcg/dose blister with device 1 inh INHALATION QDAY Qty: 3 3RF Rx Instructions: after inhalation, rinse mouth with water and spit out; do not swallow montelukast 10 mg tablet 10 mg PO DAILY Qty: 90 3RF Referrals / Follow Up: Justin Stubbs MD [Primary Care Provider] - Disposition Disposition (needs filled in before D/C Order can be placed): Home, Self Care
[2023-08-23 10:24] VITALS: BP 129/7; BP 153/90; PULSE 97; RESP 16; TEMP 36.3; O2SAT 95
[2023-08-23 10:25] VITALS: BP 127/84; BP 153/90; PULSE 90; RESP 16; O2SAT 94
[2023-08-23 10:30] VITALS: BP 119/76; BP 153/90; PULSE 90; RESP 16; O2SAT 95
[2023-08-23 10:45] VITALS: BP 125/79; BP 153/90; PULSE 84; RESP 16; TEMP 36.3; O2SAT 94
[2023-08-23 12:16] VITALS: BP 153/90; BP 155/95; PULSE 70; RESP 18; TEMP 36.4; O2SAT 98
== END 2023-08-23 12:18 | disposition home or self-care (01) ==
LOC: SDC 07:57 → AC 07:57
PROVIDERS: PCP Family Medicine; Referring Provider Surgery; Visit Provider Surgery
PROC: (CPT 49650; principal; 2023-08-23 09:10)
DX: K40.90 Unilateral inguinal hernia, without obstruction or gangrene, not specified as recurrent (principal); J44.9 Chronic obstructive pulmonary disease, unspecified; I10 Essential (primary) hypertension; G47.33 Obstructive sleep apnea (adult) (pediatric); Z79.51 Long term (current) use of inhaled steroids; Z79.899 Other long term (current) drug therapy
CPT/HCPCS: 49650; S2900; 00840; 93005; J7120; J2405

== ENCOUNTER → 2023-11-30 | Outpatient (CLI) | payer MEDICARE, SELFPAY ==
[2023-11-30 12:07] LABS: Erythrocyte Sedimentation Rate 5 mm/hr (0-20)
[2023-11-30 12:29] LABS: BNP,B-Type NATRIURETIC PEPTIDE 22.8 pg/mL (0-100)
[2023-11-30 12:30] LABS: CPK Total, Creatine Kinase 104 U/L (39-308); CRP < 2.90 mg/L (0.0-3.0); Troponin-I HS 8 pg/mL (3.0-78.0)
[2023-12-03 13:07] LABS: ANTINUCLEAR ANTIBODIES DIRECT Negative (Negative)
[2023-12-03 14:09] LABS: Aldolase 4.2 U/L (3.3-10.3); Lyme Scn Total Ab w/Rflx Negative (Negative); Myoglobin, Serum 44 ng/mL (28-72)
== END | disposition home or self-care (01) ==
PROVIDERS: PCP Family Medicine; Visit Provider Family Medicine
DX: M62.81 Muscle weakness (generalized) (principal); R06.09 Other forms of dyspnea; R53.83 Other fatigue
CPT/HCPCS: 36415; 82085; 82550; 83874; 83880; 84484; 85652; 86038; 86140; 86618

== ENCOUNTER → 2024-02-18 | Outpatient (CLI) | payer MEDICARE, BC, SELFPAY ==
--- NOTE | 2024-02-18 14:18 | RAD_ITS ---
STUDY: X-RAY CHEST REASON FOR EXAM: Male, 73 years old. COPD. Cough. TECHNIQUE: Frontal and lateral views of the chest on 3 images. COMPARISON: February 09, 2022 FINDINGS: Mild hyperinflation unchanged. There is no demonstrated pleural abnormality. Borderline cardiomegaly unchanged. Normal mediastinum and elda. Prominent central pulmonary arteries, stable. Aortic tortuosity with calcification unchanged. Mild thoracic spondylosis with lumbosacral scoliosis, unaltered. Normal visualized ribs, clavicles, and shoulders. No abnormality of the visualized soft tissue structures of the upper abdomen. RAD/Chest PA and Lateral IMPRESSION: Stable borderline cardiomegaly, prominent central pulmonary arteries and hyperinflation. No active or acute cardiopulmonary disease. Electronically Signed: Manny Griffin MD at 14:38 EDT ,
== END | disposition home or self-care (01) ==
PROVIDERS: PCP Family Medicine; Referring Provider Family Medicine; Visit Provider Family Medicine
DX: J44.9 Chronic obstructive pulmonary disease, unspecified (principal)
CPT/HCPCS: 71046

== ENCOUNTER → 2024-03-06 | Outpatient (CLI) | payer MEDICARE, BC, SELFPAY | END | disposition home or self-care (01) | LOC: PSN 06:43 | PROVIDERS: PCP Family Medicine; Referring Provider Family Medicine; Visit Provider Family Medicine | DX: J44.9 Chronic obstructive pulmonary disease, unspecified (principal) | CPT/HCPCS: 94060; 94726; 94729 ==

== ENCOUNTER → 2024-04-11 | Outpatient (CLI) | payer MEDICARE, BC, SELFPAY ==
[2024-04-11 17:48] LABS: Absolute Lymphocyte Count 1.48 X10^3/uL (0.83-4.51); Basophil# 0.03 X10^3/uL; Basophil% 0.7 % (0-1); Eosinophil# 0.32 X10^3/uL; Eosinophils% 7.2 % (0-5); Hematocrit 41.5 % (40-54); Hemoglobin 13.9 g/dL (13.0-16.5); Lymphocyte # 1.48 X10^3/ul (0.83-4.51); Lymphocyte % 33.3 % (19-41); Mean Corp Hgb Conc 33.5 g/dL (32-36); Mean Corpuscular Hgb 31.8 pg (27.0-32.0); Mean Platelet Vol. 8.8 fl (6.2-12.0); Monocyte# 0.62 X10^3/uL; Monocyte% 13.9 % (0-10); NRBC Flagged by Analyzer 0 % (0-5); Neutrophil # 1.99 X10^3/uL (2.7-7.7); Neutrophil % 44.7 % (47-70); Platelet Count 250 K/mm3 (150-450); RBC Distribution Width CV 13.2 % (11.6-14.6); RBC Distribution Width SD 46.4 fl (35.1-43.9); Red Blood Count 4.37 M/mm3 (4.6-6.2); White Blood Count 4.5 K/mm3 (4.4-11.0)
[2024-04-11 18:02] LABS: Vitamin D,25 Hydroxy 41.6 ng/mL
[2024-04-11 18:13] LABS: ALB/GLOB Ratio 1.1 RATIO (0.9-2.4); AST(SGOT) 22 U/L (15-37); Alanine Aminotransfer ALT/SGPT 30 U/L (16-61); Albumin, Serum 3.8 g/dL (3.2-5.0); Alkaline Phosphatase 86 U/L (45-117); Anion Gap 5 (5-15); BUN 21 mg/dL (7-18); BUN/Creat Ratio 17.9 RATIO (10-20); Calcium,Total 8.8 mg/dL (8.5-10.1); Chloride 107 mmol/L (98-107); Cholesterol 200 mg/dL (200); Creatinine, Serum 1.17 mg/dL (0.70-1.30); EST Glomerular Filtration Rate 65 mL/min (>60); Est Glom Filt Rate - Afr Amer 78 mL/min (>60); Globulin 3.4 g/dL (2.2-4.2); Glucose 87 mg/dL (74-106); High Density Lipoprotein 52 mg/dL; PSA,Total - Annual Screen 7.73 ng/mL (0.00-4.00); Potassium 4.3 mmol/L (3.5-5.1); Protein, Total 7.2 g/dL (6.4-8.2); Sodium Level 137 mmol/L (136-145); Triglycerides 118 mg/dL; Very Low Density Lipoprotein 24 mg/dL (5-40)
== END | disposition home or self-care (01) ==
PROVIDERS: PCP Family Medicine; Visit Provider Family Medicine
DX: J45.30 Mild persistent asthma, uncomplicated (principal); R97.20 Elevated prostate specific antigen [PSA]; I10 Essential (primary) hypertension; R53.83 Other fatigue; E55.9 Vitamin D deficiency, unspecified; Z12.5 Encounter for screening for malignant neoplasm of prostate
CPT/HCPCS: 36415; 80053; 80061; 82306; 84153; 84443; 85025; G0103

== ENCOUNTER → 2024-10-09 | Outpatient (CLI) | payer MEDICARE, BC, SELFPAY ==
[2024-10-10 13:08] LABS: PSA, Free 1.16 ng/mL; PSA, Free % 16.3 % (.)
== END | disposition home or self-care (01) ==
LOC: LAB 10:05
PROVIDERS: PCP Family Medicine; Referring Provider Urology; Visit Provider Urology
DX: R97.20 Elevated prostate specific antigen [PSA] (principal)
CPT/HCPCS: 36415; 84153; 84154

== ENCOUNTER → 2024-11-14 | Outpatient (CLI) | payer MEDICARE, BC, SELFPAY ==
--- NOTE | 2024-11-14 08:25 | MRI_ITS ---
PROCEDURE: PELVIS W/WO CONTRAST, 11/14/2024 REASON FOR EXAM: ELEVATED PSA TECHNIQUE: Multisequence multiplanar MRI pelvis was performed with and without IV contrast. IV Contrast: Information not provided. COMPARISON: None FINDINGS: Exam slightly limited by artifact related to LEFT hip arthroplasty variably obscuring some surrounding soft tissues. Prostate size: 5.0 x 3.6 x 4.4 cm, estimated volume 41 mL. Transition zone: Partially extruded transition zone nodules in the bilateral posterior peripheral zone base. Additional lesions as below: *Lesion 1: Bilateral anterior transition zones and overlying anterior fibromuscular stroma/anterior peripheral zones centered at apex but extending into the midgland/base measuring, up to 1.4 cm on a single axial image (for example, series 15 images 15-22, series 13 image 8). Measures over 1.5 cm in craniocaudal extent, at least 2.4 cm. *T2 score: 5 *DWI score: 5 *DCE: Positive. *Overall PI-RADS: PI-RADS 5. *Extracapsular extension:No definite extracapsular extension, however, there is capsular abutment well over 1 cm which increases the risk of occult early/microscopic extracapsular extension. Peripheral Zone: As above, otherwise there are fairly prominent background changes of likely prostatitis (PI-RADS 2). Additional lesions as below: Neurovascular bundles: Unremarkable. Seminal vesicles: Unremarkable. Bladder: Trabeculation with tiny diverticuli suggesting chronic bladder outlet obstruction.. Lymph nodes: Distal LEFT external iliac node, 11 mm short axis. Prominent but nonenlarged distal RIGHT external iliac node, 7 mm short axis. Bones: Artifact related to LEFT hip arthroplasty hardware as above. No destructive or frankly suspicious bony lesions identified within visible portions of the pelvis. Other: Diverticulosis. Lumbar spondylosis.. MRI/Pelvis W/WO Contrast IMPRESSION: 1. Suspicious 2.4 cm PI-RADS 5 lesion involving the bilateral anterior transiti on zones and overlying anterior fibromuscular stroma/anterior peripheral zone centered at the level of the apex but extending into the midgland/base. Recommend urologic follow-up. 2. No definite extracapsular extension, however, there is capsular abutment wel l over 1 cm which increases the risk of occult early/microscopic extracapsular extension. 3. Mildly enlarged distal LEFT external iliac node. If prostate cancer is conf irmed, this would at a minimum warrant close follow-up 4. Additional description as above. Reading Location: [id number]
== END | disposition home or self-care (01) ==
LOC: OPMRI 07:42
PROVIDERS: PCP Family Medicine; Referring Provider Urology; Visit Provider Urology
DX: R97.20 Elevated prostate specific antigen [PSA] (principal)
CPT/HCPCS: 72197; A9575; A4216

== ENCOUNTER 2024-11-24 15:30 | Outpatient (RCR) | payer MEDICARE, BC, SELFPAY ==
--- NOTE | 2024-10-24 08:12 | HP.PTEVAL_ITS ---
Patient's Visit Information Visit Information Visit Information: DOLLY NAVARRO is a 74 year old M referred to Physical Therapy by Dr. Justin Stubbs MD with a diagnosis of BALANCE ISSUES AND STIFF GENERAL MUSCLE. Date of Evaluation: 10/24/24 Physical Therapist: Kong Quiroga, PT, Cert MDT, OCS Visit Plan Frequency: 2x /Week Duration: 4 Weeks Plan: PT INTERVENTIONS HIGH LEVEL BALANCE PROGRAM ,AEROBIC EX'S , BLE STRENGTHENING AND FUNCTIONAL STRENGTHENING Subjective Subjective: This 72 y/o male presents to physical therapy with balance issues. Patient reports occasionally LOB . No recent falls. Patient gets occasionally dizzy transitional movements. Patient denies paresthesia/tingling.Patient c/o ankle knee pain . Legs never give way. Patient is able to squat but has difficulty with kneeling.Patient has left knee pain with DJD. Patient sleeping good. Patient is able to do all ADL's and housework tasks. Patient lives 1 story home with one stair. Patient condition affects QOL and function . 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 Objective Objective: POSTURE: calcaneal valgus right ankle > left GAIT: reciprocal pattern calcaneal valgus NEURO: denies paresthesia/tingling FLEXABILITY: min tight hamstrings MMT: quads/hams 4/5 ,hip flexion 4/5 ,hip abduction 4-/5 ,ankle 5/5 STAIRS: one step at time SLS: ea leg < 5 sec Balance/Special Test Scores Functional Gait Assessment Score: 29 % Disability: 3.3400 CATSIB Score (Max score 120 seconds): 120 Lower Extremity Functional Score: 55 30 Second Chair Rise Test Seconds: 11 Goals Goal 1:: I with with [facility] for balance program Goal Time Frame: 4-6 Weeks Goal 2:: Patient to improve SLS ea leg > 20-30 sec to improve gait and balance Goal Time Frame: 4-6 Weeks Goal 3:: Patient to improve 30sec sit-stand by 5 reps to improve functional strength Goal Time Frame: 4-6 Weeks Goal 4:: Patient to improve LFES score by 5 points to improve gait and function Goal Time Frame: 4-6 Weeks Goal 5:: Patient to demonstrate 75% improvement with balance and function Goal Time Frame: 4-6 Weeks Rehabilitation Potential Physical Therapy Diagnosis: This patient has minor age related balance deficits with functional gait assessment score WFL ,CTSIB WFL decrease functional en durance and high level balance with SLS < 5sec displays min risk for falls Rehabilitation Potential: Good Anticipated Interventions Patient/Client Instruction: Educate patient on: Condition and Plan of Care For the Purpose of:: To improve muscle performance and motor function, To improve ability to perform ADL's, To increase tolerance to activity/condition/position, To improve ability of physical actions for home/community/work/leisure, To improve gait and locomotor functions, To improve endurance, To improve balance and To improve tolerance to ADL's Therapeutic Exercise to Include: Strength training, Endurance training, Balance training, Gait and locomotor training and Active ROM For the Purpose of:: To improve muscle performance and motor function, To improve ability to perform ADL's, To increase tolerance to activity/condition/position, To improve ability of physical actions for home/community/work/leisure, To improve gait and locomotor functions and To improve tolerance to ADL's Text: Thank you for the opportunity to evaluate your patient. For Medicare and Medicare HMO plans, please review the plan of care and approve it. It will need to be FAXED BACK to us at [phone] for Medicare purposes. For Medicare only, by signing this I certify the plan of care. Please let me know if there are questions or concerns regarding this plan of care. Physician Signature : Date:
--- NOTE | 2024-11-24 15:57 | HP.PTDCSUM_ITS ---
Discharge Summary D/C summary: It has been my pleasure to treat DOLLY NAVARRO referred by Dr. Justin Stubbs MD, with the diagnosis of BALANCE ISSUES AND STIFF GENERAL MUSCLE for a total of 9 visit(s). Discharge Date: 11/24/24 Please see the following information for a summary of their discharge status. Subjective Subjective: Doing better overall . No falls RTD December every 6 months Plan to see Ortho for left knee Pain LBP: Pain Intensity (Out of 10): 0 Left Knee: Pain Intensity (Out of 10): 1 Overall Improvement % Improvement: 50 Objective Objective/Function: POSTURE: calcaneal valgus right ankle > left GAIT: reciprocal pattern calcaneal valgus NEURO: denies paresthesia/tingling FLEXABILITY: min tight hamstrings MMT: quads/hams 4/5 ,hip flexion 4/5 ,hip abduction 4-/5 ,ankle 5/5 STAIRS: one step at time SLS: ea leg < 5 sec Goals Goal 1:: I with with [facility] for balance program Goal Progress: Goal Met Goal 2:: Patient to improve SLS ea leg > 20-30 sec to improve gait and balance Goal Progress: Goal Met Goal 3:: Patient to improve 30sec sit-stand by 5 reps to improve functional strength Goal Progress: Goal Met Goal 4:: Patient to improve LFES score by 5 points to improve gait and function Goal Progress: Goal Met Goal 5:: Patient to demonstrate 75% improvement with balance and function Goal Progress: Goal Met Plan Plan: D/C D/C Information Discharge Comments: hep d/c sentence: If there are questions or concerns regarding this patient's physical therapy, please feel free to call me at [phone]. Thank you for the referral of this patient. Sincerely, Kong Quiroga, PT, Cert MDT, OCS Balance/Gait/Functional tests Balance/Special Test Scores Functional Gait Assessment Score: 30 % Disability: 0 CATSIB Score (Max score 120 seconds): 120 Lower Extremity Functional Score: 57 30 Second Chair Rise Test Seconds: 11 Improvement % Improvement: 50
--- NOTE | 2024-11-24 15:57 | HP.PTDCSUM_ITS ---
Discharge Summary D/C summary: It has been my pleasure to treat DOLLY NAVARRO referred by Dr. Justin Stubbs MD, with the diagnosis of BALANCE ISSUES AND STIFF GENERAL MUSCLE for a total of 9 visit(s). Discharge Date: 11/24/24 Please see the following information for a summary of their discharge status. Subjective Subjective: Doing better overall . No falls RTD December every 6 months Plan to see Ortho for left knee Pain LBP: Pain Intensity (Out of 10): 0 Left Knee: Pain Intensity (Out of 10): 1 Overall Improvement % Improvement: 50 Objective Objective/Function: POSTURE: calcaneal valgus right ankle > left GAIT: reciprocal pattern calcaneal valgus NEURO: denies paresthesia/tingling FLEXABILITY: min tight hamstrings MMT: quads/hams 4/5 ,hip flexion 4/5 ,hip abduction 4-/5 ,ankle 5/5 STAIRS: one step at time SLS: ea leg < 5 sec Goals Goal 1:: I with with [facility] for balance program Goal Progress: Goal Met Goal 2:: Patient to improve SLS ea leg > 20-30 sec to improve gait and balance Goal Progress: Goal Met Goal 3:: Patient to improve 30sec sit-stand by 5 reps to improve functional strength Goal Progress: Goal Met Goal 4:: Patient to improve LFES score by 5 points to improve gait and function Goal Progress: Goal Met Goal 5:: Patient to demonstrate 75% improvement with balance and function Goal Progress: Goal Met Plan Plan: D/C D/C Information Discharge Comments: hep d/c sentence: If there are questions or concerns regarding this patient's physical therapy, please feel free to call me at [phone]. Thank you for the referral of this patient. Sincerely, Kong Quiroga, PT, Cert MDT, OCS Balance/Gait/Functional tests Balance/Special Test Scores Functional Gait Assessment Score: 30 % Disability: 0 CATSIB Score (Max score 120 seconds): 120 Lower Extremity Functional Score: 57 30 Second Chair Rise Test Seconds: 11 Improvement % Improvement: 50
== END 2024-11-24 19:00 | disposition home or self-care (01) ==
LOC: PT 15:30
PROVIDERS: PCP Family Medicine; Referring Provider Family Medicine; Visit Provider Family Medicine
DX: R26.81 Unsteadiness on feet (principal)
CPT/HCPCS: 97110; 97162; 97530

== ENCOUNTER → 2024-12-04 | Outpatient (CLI) | payer MEDICARE, BC, SELFPAY | END | disposition home or self-care (01) | LOC: LABSPEC 15:26 | PROVIDERS: PCP Family Medicine; Referring Provider Urology; Visit Provider Urology | DX: R97.20 Elevated prostate specific antigen [PSA] (principal) | CPT/HCPCS: 88305; G0416 ==

== ENCOUNTER 2025-01-07 14:26 | Day surgery (SDC) | payer MEDICARE, BC, SELFPAY ==
--- NOTE | 2025-01-06 11:53 | PAT.ANESEVAL ---
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 When Was Last Pacemaker Check QUESTION #4 FULL TEXT: You/Your Family Experience fever (hyperthermia) with Anesthesia Last Oral Intake Last Oral intake: Last Oral Intake NPO since Meds taken in AM with sips of water? Meds patient instructed to take am of surgery PONV PONV - sales supervisor: PONV - sales supervisor Female No 01/06/25 09:18 HX of Motion Sickness No 01/06/25 09:18 HX of N/V After Surgery No 01/06/25 09:18 Non-Smoker Yes 01/06/25 09:18 Duration of Surgery greater No 01/06/25 09:18 than 60 minutes Number of Risk Factors 1 01/06/25 09:18 PONV Score Low Risk 01/06/25 09:18 Height & Weight Height & Weight: Anesthesia: Height & Weight Height 6 ft 2 in 01/01/25 13:28 Respiratory Assessment Respiratory Assessment - sales supervisor: Respiratory Tract Infection Hx - sales supervisor Hx Respiratory Tract Infection No 01/06/25 09:18 STOP Sleep Apnea STOP Sleep Apnea - sales supervisor: STOP Sleep Apnea - sales supervisor Hx Hypertension Yes 01/06/25 09:18 Hx Sleep Apnea Yes 01/06/25 09:18 CPAP No 01/06/25 09:18 BIPAP Yes 01/06/25 09:18 Do you snore loudly (louder than talking or can be heard Do you often feel tired/ fatigued/ sleepy during daytime? Has anyone observed you stop breathing during sleep? STOP Results Positive 01/06/25 09:18 QUESTION #5 FULL TEXT : Do you snore loudly (louder than talking or can be heard through closed doors)? 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 Specify any problems Hx of Preganancy in last 3 N/A 01/06/25 09:18 Months Nurse Filling Out Transfusion [id number] 01/06/25 09:18 & Questions: Date: 01/06/25 01/06/25 09:18 Time: 09:22 01/06/25 09:18 Patient unable to answer at this time (ie. confused, unrespo /Reproduction History /Reproductive History - sales supervisor: /Reproductive Hx- sales supervisor Hx Now Gestational Age (in weeks): EDC: Hx Hx Para Hx Section SAB Active Medications Active Medications: Current Medications Generic Name Dose Route Start Last Admin Trade Name Freq PRN Reason Stop Dose Admin Cefazolin Sodium 3 gm/ Sodium 115 mls @ 200 mls/hr 01/07/25 16:30 Chloride IV 01/07/25 17:04 INTRAOP ONE [facility] Medical History (Updated 01/06/25 @ 09:24 by Sarabjit Jerez) History of echocardiogram Prostate cancer Gout Wears glasses History of steroid therapy Arthritis Non-smoker BiPAP (biphasic positive airway pressure) dependence Sleep apnea COPD (chronic obstructive pulmonary disease) Shortness of breath on exertion History of edema History of stress test History of ganglion cyst Right inguinal hernia Sleep disorder breathing Allergic rhinitis Asthma-COPD overlap syndrome Kidney stones Vision problems Hypertension History of emotional problems Synovitis and tenosynovitis Cellulitis, finger Late effect of open wound of extremities 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, upper limb Asthma Seasonal allergic rhinitis Home Medications ?Medication ?Instructions ?Recorded ?Last Taken ?Type cholecalciferol (vitamin D3) 125 5,000 unit PO DAILY 01/10/17 08/22/23 History mcg (5,000 unit) capsule candesartan 8 mg tablet 8 mg PO DAILY 08/17/22 08/23/23 History cyanocobalamin (vitamin B-12) 1,000 mcg PO DAILY 08/14/23 08/22/23 History 1,000 mcg tablet (Vitamin B-12) magnesium 250 mg tablet 250 mg PO DAILY 08/14/23 08/22/23 History zinc 50 mg capsule 50 mg PO DAILY 08/14/23 08/22/23 History albuterol sulfate 90 mcg/actuation 1 puff inhalation Q4H PRN PRN 03/11/24 Unknown Rx aerosol inhaler shortness of breath or wheezing #1 device budesonide 160 mcg-glycopyr 9 2 inh inhalation BID #10.7 grams 05/08/24 Unknown Rx mcg-formot 4.8 mcg/actuation HFA inhaler (Breztri Aerosphere) loratadine 10 mg capsule (Allergy 10 mg PO QDAY #30 caps 06/20/24 Unknown Rx Relief (loratadine)) montelukast 10 mg tablet 10 mg PO DAILY #90 tabs 08/01/24 Unknown Rx citalopram 40 mg tablet 20 mg PO DAILY 01/06/25 Unknown History Allergy/AdvReac Type Severity Reaction Status Date / Time Penicillins (PCN) Allergy Other Verified 01/06/25 09:14 Sulfa (Sulfonamide Allergy Other Verified 01/06/25 09:14 Antibiotics) Family History Mother Hypertension Father Hypertension Heart disease CVA (cerebral vascular accident) Myocardial infarction Brother Parkinson's disease Heart disease Grandfather Parkinson's disease Surgical History Total knee replacement status Hx of prostate biopsy Status post inguinal hernia repair History of lithotripsy H/O hand surgery S/P right knee surgery S/P total left hip arthroplasty Ganglion cyst Social History Smoking Status: Never smoker second hand exposure: No alcohol intake: never substance use type: does not use caffeine: Yes (5 drinks/day) what type of physical activity do you participate in: none Audit: Pertinent Findings Pertinent Findings EKG Perinent findings: EKG 15 August 2023. Normal sinus rhythm Echo (EF%) pertinent findings: Stress echo 10/27/2020. EF 55%. All segments normal. Negative stress echocardiogram. Recommendation Anesthesia Recommendation Anesthesia recommendation: OPTIMIZED for anesthesia
[2025-01-07] VITALS (9 sets, daily range): BP systolic 126–150; BP diastolic 87–97; PULSE 72–93; RESP 14–20; TEMP 36.8–37.1; O2SAT 92–96; BMI 36.2
--- NOTE | 2025-01-07 15:01 | PRE.ANES_ITS ---
ASA Classification* ASA Classification ASA Classification: 2 Assessment & Plan Anesthesia* Anesthesia Assessment Anesthesia Assessment: Discussed sedation and/or anesthesia options, risks, benefits, and alternatives with patient/parents/legal guardian/POA. Questions invited. The patient/parents/legal guardian/POA seems to understand and agrees to proceed with anesthesia plan. Reviewed the physical assessment, medical history, allergy history and patient home medications list prior to surgery/procedure/anesthetic and documented any changes. Performed airway and anesthesia risk assessments. Anesthesia Type Anesthesia Type: General Anesthesia Focused Assessment* Temperature: 98.3 F Pulse Rate: 93 Blood Pressure: 146/90 Respiratory Rate: 16 Pulse Ox: 96 Airway Assessment Mouth opens: >3 cm Mallampati Score: II Labs Anesthesia Preop lab: CBC WBC 4.5 K/mm3 (4.4-11.0) 04/11/24 11:41 04/11/24 RBC 4.37 M/mm3 (4.6-6.2) L 04/11/24 11:41 04/11/24 Hgb 13.9 g/dL (13.0-16.5) 04/11/24 11:41 04/11/24 Hct 41.5 % (40-54) 04/11/24 11:41 04/11/24 Plt Count 250 K/mm3 (150-450) 04/11/24 11:41 04/11/24 CHEMISTRY Potassium 4.3 mmol/L (3.5-5.1) 04/11/24 11:41 04/11/24 Sodium 137 mmol/L (136-145) 04/11/24 11:41 04/11/24 BUN 21 mg/dL (7-18) H 04/11/24 11:41 04/11/24 Creatinine 1.17 mg/dL (0.70-1.30) 04/11/24 11:41 04/11/24 Glucose 87 mg/dL (74-106) 04/11/24 11:41 04/11/24 TSH 1.060 uIU/mL (0.358-3.740) 04/11/24 11:41 11/0 01/25 COAG Pre-Assessment Diagnosis/Proposed Procedure Planned Operative Procedure(s): GOLD MARKERS AND SPACE OAR GEL Anesthesia History 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 When Was Last Pacemaker Check QUESTION #4 FULL TEXT: You/Your Family Experience fever (hyperthermia) with Anesthesia Last Oral Intake Last Oral intake: Last Oral Intake NPO since 18:00 01/07/25 14:47 Meds taken in AM with sips of Yes 01/07/25 14:47 water? 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 Female No 01/06/25 09:18 HX of Motion Sickness No 01/06/25 09:18 HX of N/V After Surgery No 01/06/25 09:18 Non-Smoker Yes 01/06/25 09:18 Duration of Surgery greater No 01/06/25 09:18 than 60 minutes Number of Risk Factors 1 01/06/25 09:18 PONV Score Low Risk 01/06/25 09:18 Height & Weight Height & Weight: Anesthesia: Height & Weight Height 6 ft 2 in 01/07/25 14:47 Weight: 128 kg 01/07/25 14:47 Body Mass Index (BMI) 36.2 01/07/25 14:47 Respiratory Assessment Respiratory Assessment - steam and gas turbines assembler: Respiratory Tract Infection Hx - 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 Has anyone observed you stop breathing during sleep? STOP Results Positive 01/06/25 09:18 QUESTION #5 FULL TEXT : Do you snore loudly (louder than talking or can be heard through closed doors)? 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 Specify any problems Hx of Preganancy in last 3 N/A 01/06/25 09:18 Months Nurse Filling Out Transfusion [id number] 01/06/25 09:18 & Questions: Date: 01/06/25 01/06/25 09:18 Time: 09:01/06/25 09:18 Patient unable to answer at this time (ie. 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: /Reproductive Hx- steam and gas turbines assembler Hx Now Gestational Age (in weeks): EDC: Hx Hx Para Hx Section SAB Active Medications Active Medications: Current Medications Generic Name Dose Route Start Last Admin Trade Name Freq PRN Reason Stop Dose Admin Cefazolin Sodium 3 gm/ Sodium 115 mls @ 200 mls/hr 01/07/25 16:30 Chloride IV 01/07/25 17:04 INTRAOP ONE Lactated Ringer's 1,000 mls @ 15 mls/hr 01/07/25 14:45 IV .Q48H SARAH PFSH Medical History History of echocardiogram Prostate cancer Gout Wears glasses History of steroid therapy Arthritis Non-smoker BiPAP (biphasic positive airway pressure) dependence Sleep apnea COPD (chronic obstructive pulmonary disease) Shortness of breath on exertion History of edema History of stress test History of ganglion cyst Right inguinal hernia Sleep disorder breathing Allergic rhinitis Asthma-COPD overlap syndrome Kidney stones Vision problems Hypertension History of emotional problems Synovitis and tenosynovitis Cellulitis, finger Late effect of open wound of extremities 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, upper limb Asthma Seasonal allergic rhinitis Home Medications ?Medication ?Instructions ?Recorded ?Last Taken ?Type cholecalciferol (vitamin D3) 125 5,000 unit PO DAILY 0 01/10/17 08/22/23 History mcg (5,000 unit) capsule candesartan 8 mg tablet 8 mg PO DAILY 08/17/2208/22 History cyanocobalamin (vitamin B-12) 1,000 mcg PO DAILY 08/1308/22/23 History 1,000 mcg tablet (Vitamin B-12) magnesium 250 mg tablet 250 mg PO DAILY 08/14/23 History zinc 50 mg capsule 50 mg PO DAILY 08/14/2308/03 History albuterol sulfate 90 mcg/actuation 1 puff inhalation Q 4H PRN PRN 03/11/24 Unknown Rx aerosol inhaler shortness of breath or wheez ing #1 device budesonide 160 mcg-glycopyr 9 2 inh inhalation BID #10 .7 grams 05/08/24 Unknown Rx mcg-formot 4.8 mcg/actuation HFA inhaler (Breztri Aerosphere) loratadine 10 mg capsule (Allergy 10 mg PO QDAY #30 ca ps 06/20/24 01/07/25 07:00 Rx Relief (loratadine)) montelukast 10 mg tablet 10 mg PO DAILY #90 tabs 07/06 01/26 Unknown Rx citalopram 40 mg tablet 20 mg PO DAILY 01/06/25 08/0 11/26 07:30 History Allergy/AdvReac Type Severity Reaction Status Date / Time Penicillins (PCN) Allergy Other Verified 01/06/25 09:14 Sulfa (Sulfonamide Allergy Other Verified 01/06/25 09:14 Antibiotics) Family History Mother Hypertension Father Hypertension Heart disease CVA (cerebral vascular accident) Myocardial infarction Brother Parkinson's disease Heart disease Grandfather Parkinson's disease Surgical History Total knee replacement status Hx of prostate biopsy Status post inguinal hernia repair History of lithotripsy H/O hand surgery S/P right knee surgery S/P total left hip arthroplasty Ganglion cyst Social History Smoking Status: Never smoker second hand exposure: No alcohol intake: never substance use type: does not use caffeine: Yes (5 drinks/day) what type of physical activity do you participate in: none Review of Systems (Anesthesia) ROS Narrative System reviewed and no additional complaints, except as documented.
[2025-01-07] MEDS: Lactated Ringers 1,000 ML 15 ML IV (15:05)
--- NOTE | 2025-01-07 15:27 | DCINST_ITS ---
Discharge Instructions DC O2, CPAP, BIPAP needs Home O2 Discharge instructions: No Dressing / Incision Discharge Activity: Return to Normal Activity and May Not Drive (while taking narcotic pain medications.) Dressing / Incision Call your doctor if you observe: Fever of 101 or Higher Follow Up Care Please Follow Up With: Andrea Ledesma MD When: Call [phone] for an appointment Test Results: Test results from this visit will be discussed in further detail at your follow- up appointment, if applicable. Discharge Plan Admission Primary Reason for Your Visit: Prostate cancer Attending Provider: Andrea Ledesma Primary Care Provider: Justin Stubbs Instructions Print Language: [place] Discharge Orders/Prescriptions Prescriptions: New ciprofloxacin HCl [Cipro] 500 mg tablet 500 mg PO BID Qty: 6 0RF Continued candesartan 8 mg tablet 8 mg PO DAILY Breztri Aerosphere 160-9-4.8 mcg/actuation HFA aerosol inhaler 2 inh inhalation BID Qty: 10.7 6RF Allergy Relief (loratadine) 10 mg capsule 10 mg PO QDAY Qty: 30 11RF cholecalciferol (vitamin D3) 5,000 UNIT capsule 5,000 unit PO DAILY zinc 50 mg capsule 50 mg PO DAILY magnesium 250 mg tablet 250 mg PO DAILY cyanocobalamin (vitamin B-12) [Vitamin B-12] 1,000 mcg tablet 1,000 mcg PO DAILY citalopram 40 mg tablet 20 mg PO DAILY albuterol sulfate 90 mcg/actuation HFA aerosol inhaler 1 puff INHALATION Q4H PRN PRN (Reason: shortness of breath or wheezing) Qty: 1 6RF montelukast 10 mg tablet 10 mg PO DAILY Qty: 90 3RF Referrals / Follow Up: Justin Stubbs MD [Primary Care Provider] - Andrea Ledesma MD [Med Staff - Active Staff] - Disposition Disposition (needs filled in before D/C Order can be placed): Home, Self Care
[2025-01-07] MEDS: Lactated Ringers 1,000 ML 1000 ML IV (15:29)
[2025-01-07] MEDS: Midazolam 2 MG/2 ML Syringe IV (15:29)
[2025-01-07] MEDS: Cefazolin 1 GM/5 ML Vial 2 GM IV (15:35)
[2025-01-07] MEDS: fentaNYL 100 MCG/2 ML Ampul IV (15:35)
--- NOTE | 2025-01-07 15:45 | OP.PCM_ITS ---
Operative Report (Standard) Operative Information Date of Procedure: 01/07/25 Pre-Operative Diagnosis: Prostate cancer Post-Operative Diagnosis: The same Surgery/Procedure Performed: Placement of gold markers and spacer gel visual basic developer: No Type of Anesthesia: General RN Documented Start/Stop Times: Operation Date: 01/07/25 16:30 Case Time Into Pre-Op 01/07/25 14:33 Out of Pre-Op 01/07/25 15:24 Procedure Start Time: 15:40 Procedure Stop Time: 15:46 Select all DRAINS/GRAFTS/IMPLANTS that apply: None Estimated Blood Loss: 0 Specimen collected: No Description of surgery: In the preoperative area I reviewed with the patient how the procedure is done we talked about the risk of the procedure including the risk of infection, ble eding, migration of the spacer gel, the patient is planning to have radiation to the prostate he understands that the spacer gel has demonstrated benefit in reducing the risk of toxicity from the ration radiation to the rectum but there is no guarantees that this spacer gel will prevent any serious complications or toxicity to the rectum or bowels. After reviewing this with the patient and his family organ to proceed with placement of a spacer gel matrix. The penis and testicles were prepped and draped in usual sterile fashion, ultrasound probe was placed into the rectum and biplanar ultrasound was performed on the prostate. Identified the base mid and apex of the prostate identified the transition zone prostate. Then using a needle the first exhaust worker was placed into the right base of the prostate, the second exhaust worker was placed in the left base of the prostate, and the third core marker was placed in the right apex of the prostate after all 3 markers were placed the placement of the markers were confirmed by ultrasonography. Patient was taken back to the operating room after smooth induction of anesthesia he was placed supine on the table. The genitals and perineum were prepped and draped in usual sterile fashion. I then introduced a biplanar ultrasound probe into the rectum and performed ultrasonography and identified the Denonvilliers' fascia the prostate mid base and apex and seminal vesicles. The spacer gel mix was then prepared on the back table per manufactures instruction. Under ultrasound guidance in the midline perineum a bevel needle down we advanced through the perineum below the prostate into the space of Denonvilliers' fascia. This space which could be identified by ultrasound with a bright white layer between the prostate and the rectum. I then injected a puff of normal saline to identify the space further. After I confirmed that the needle was in the correct space in the mid prostate and the space of Denonvilliers' fascia between the rectum and the prostate. Then over the course of 15 seconds the gel matrix was injected slowly there was nice separation between the prostate and the rectum at the gel matrix was injected. The position of the gel matrix was confirmed by ultrasound. Then the injection needle was removed intact. Patient's perineum was cleaned patient was taken out of stirrups and then taken back to the PACU in good condition. Surgical Findings: - Complications Complications: No Admit VTE Documentation VTE Present on Admission: No VTE Mechan Device Prophylaxis: SCD's
--- NOTE | 2025-01-07 15:55 | PCM.POST.ANE ---
Anesthesia: Postop Eval I Current Vital Signs Temperature: 98.6 F Pulse Rate: 74 Blood Pressure: 150/93 Respiratory Rate: 20 Pulse Ox: 94 Oxygen Delivery Method: Room Air Assessment Airway patent: Yes Spontaneous unlabored respirations: Yes Mental status: Awake and Calm nausea: No Vomiting: No Anesthesia Complication: No Fluid Hydration Crystalloid volume administer (ml): 400 Total IV fluid infused: 400 Progress Note Anesthesia document: Postop Eval 1 completed: Yes
== END 2025-01-07 16:36 | disposition home or self-care (01) ==
LOC: SDC 14:26 → AC 14:27
PROVIDERS: PCP Family Medicine; Referring Provider Urology; Visit Provider Urology
PROC: (CPT 55874; principal; 2025-01-07 16:15)
DX: C61 Malignant neoplasm of prostate (principal); J44.9 Chronic obstructive pulmonary disease, unspecified; R31.0 Gross hematuria; N40.1 Benign prostatic hyperplasia with lower urinary tract symptoms; R97.20 Elevated prostate specific antigen [PSA]; R35.0 Frequency of micturition; R35.1 Nocturia; R39.12 Poor urinary stream; I10 Essential (primary) hypertension; F41.9 Anxiety disorder, unspecified; Z79.899 Other long term (current) drug therapy
CPT/HCPCS: 55874; 55876; 00902; A4648; C1889; J2405

== ENCOUNTER → 2025-01-13 | Outpatient (CLI) | payer MEDICARE, BC, SELFPAY ==
--- NOTE | 2025-01-13 13:40 | MRI_ITS ---
EXAM: PELVIS W/WO CONTRAST 01/13/2025 CLINICAL HISTORY: EVAL DISEASE EXTENT FOR PROSTATE CANCER. TECHNIQUE: PELVIS W/WO CONTRAST Multiplanar and multisequence images were obtained intravenous gadolinium contrast. CONTRAST: Clariscan VOLUME: 25 mL COMPARISON: MRI prostate 11/14/2024 FINDINGS: FINDINGS: IMAGE QUALITY: Diagnostic. HEMORRHAGE: None PROSTATE VOLUME: Prostate measures: 5.3 Cm TV x cm 4. 2 AP x cm 4.1 CC, with volume of 45 cc. PERIPHERAL ZONE: Lesion # : 1 - Side: Bilateral anterior transition zone lesion extending into fibromuscular zone, unchanged since prior study. - Zone: Bilateral anterior transition zone lesion overlying anterior fibromuscular stroma/anterior peripheral zones centered at apex. - Size: on T2-weighted imaging: This lesion measures 1.5 x 1.5 x 2.4 cm previously measured 1.4 x 1.5 x 2.4 cm. - Relation to capsule: This lesion abuts the capsule again spanning over 1 cm similar to prior. - ADC: B values,50 to 800 . Average ADC value of 778 with standard deviation , range of 340. - Nursing Techn image(s): Image 9-13 series 26 Assessment categories for this lesion: - T2 =5 /5 - DWI-ADC =5 /5 - DCE =positive - PI-RADS for this lesion =5 /5 TRANSITION ZONE: Hypertrophy with heterogeneous T2-signal. There is heterogenous appearance of transitional zone likely related to underlying prostatic hyperplasia. EXTRACAPSULAR EXTENT: Anteriorly located lesion within transition zone overlying anterior fibromuscular stroma and peripheral Zone at apex abuts capsule. Findings are similar in appearance to prior study. There is no definite evidence of extracapsular extension. SEMINAL VESICLES: Normal, symmetric. NEUROVASCULAR BUNDLES: Normal, symmetric. BLADDER NECK: Normal. Redemonstration of trabeculation within bladder likely related to bladder outlet obstruction secondary to prostatic hypertrophy. MEMBRANOUS URETHRA: Normal LYMPH NODES: Redemonstration of left external iliac lymph node measuring 9.5 mm previously measured 10.9 mm and right external iliac lymph node measuring 6.8 mm previously 6.9 mm (please see bhakta images). Additional scattered inguinal lymph nodes are also visualized likely reactive. BONE MARROW: Normal signal intensity. OTHER: Colonic diverticulosis without evidence of diverticulitis. Status post left hip arthroplasty with artifacts. MRI/Pelvis W/WO Contrast IMPRESSION: Overall stable exam without any definite interval change since prior MRI from 0 11/14/2024. *Redemonstration of stable PI-RADS 5 lesion within bilateral anterior transitio n zone extending into fibromuscular zone/anterior peripheral zone centered at apex. There is persistent abutment of capsule from this lesion for which underlying occult disease can not be entirely excluded. Please note these findings are unchanged since pr ior study. Continued attention on follow-up imaging is recommended. *Persistent mildly enlarged bilateral external iliac chain lymph nodes. Overall PI-RADS = 5/5 Overall Follow-Up Score (PRECISE) = 5 / 5 Overall Assessment Categories (PI-RADS V2.1): Likelihood that a clinically significant cancer is present based on MRI paramet ers 1. Very low (clinically significant cancer is highly unlikely to be present) 2. Low (clinically significant cancer is unlikely to be present) 3. Intermediate (the presence of clinically significant cancer is equivocal 4. High (clinically significant cancer is likely to be present) 5. Very high (clinically significant cancer is highly likely to be present) Reading Location: [id number]
== END | disposition home or self-care (01) ==
LOC: OPMRI 13:11
PROVIDERS: PCP Family Medicine; Referring Provider Student in an Organized Health Care Education/Training Program; Visit Provider Student in an Organized Health Care Education/Training Program
DX: C61 Malignant neoplasm of prostate (principal)
CPT/HCPCS: 72197; A9575; A4216

== ENCOUNTER → 2025-01-15 | Outpatient (CLI) | payer MEDICARE, BC, SELFPAY ==
[2025-01-15 10:28] LABS: Hematocrit 40.4 % (40-54); Hemoglobin 13.8 g/dL (13.0-16.5); Immature Granulocytes Count 0.010 X10^3/uL (0.0-0.0); Mean Corp Hgb Conc 34.2 g/dL (32-36); Mean Corpuscular Volume 92.0 fL (80-94); Mean Platelet Vol. 9.1 fl (6.2-12.0); NRBC Flagged by Analyzer 0 % (0-5); Platelet Count 233 K/mm3 (150-450); RBC Distribution Width CV 12.7 % (11.6-14.6); RBC Distribution Width SD 43.3 fl (35.1-43.9); Red Blood Count 4.39 M/mm3 (4.6-6.2); White Blood Count 5.1 K/mm3 (4.4-11.0)
[2025-01-15 10:38] LABS: Creatinine, Urine (random) 158.00 mg/dL (39.00-259.00); Microalbumin,Random Urine < 12.0 mg/L (<20 mg/L)
[2025-01-15 10:40] LABS: AST(SGOT) 26 U/L (<=37); Alanine Aminotransfer ALT/SGPT 27 U/L (<=46); Albumin, Serum 4.3 g/dL (3.4-4.8); Alkaline Phosphatase 100 U/L (40-129); Anion Gap 11 (5-15); BUN 22 mg/dL (4-19); BUN/Creat Ratio 20.5 RATIO (10-20); Calcium,Total 9.4 mg/dL (7.6-11.0); Carbon Dioxide 23.0 mmol/L (21.0-32.0); Chloride 103 mmol/L (98-108); Globulin 2.7 g/dL (2.2-4.2); Glucose 96 mg/dL (70-99); Potassium 4.5 mmol/L (3.3-5.1)
[2025-01-15 13:05] LABS: Cholesterol 186 mg/dL (<=200)
== END | disposition home or self-care (01) ==
LOC: MFPLAB 08:38
PROVIDERS: PCP Family Medicine; Visit Provider Family Medicine
DX: I10 Essential (primary) hypertension (principal)
CPT/HCPCS: 36415; 80053; 82043; 82465; 82570; 83718; 85025

== ENCOUNTER → 2025-02-17 | Outpatient (CLI) | payer MEDICARE, BC, SELFPAY ==
--- NOTE | 2025-02-17 16:09 | RAD_ITS ---
PROCEDURE: LEFT RIBS UNI MIN 3V W/PA CHEST 02/17/2025 REASON FOR EXAM: PAIN TECHNIQUE: Procedure Code: RADRIB Modality: DX Procedure: RIBS UNI MIN 3V W/PA CHEST COMPARISON: None. FINDINGS: Lungs/Pleura: Clear. No pneumothorax or sizable pleural effusion. Heart/Mediastinum: Mildly enlarged. Tortuous and calcified thoracic aorta. Bones/Soft tissues: Degenerative changes of the spine with mild thoracic dextroscoliosis. No acute fracture or dislocation is appreciated. RAD/Ribs Uni Min 3V w/PA Chest IMPRESSION: No acute cardiopulmonary disease. No acute rib fracture appreciated. Reading Location: [facility]
== END | disposition home or self-care (01) ==
LOC: MTRAD 16:09
PROVIDERS: PCP Family Medicine; Referring Provider Physician Assistant; Visit Provider Physician Assistant
DX: R07.89 Other chest pain (principal)
CPT/HCPCS: 71101